=== PATIENT | male | born 1975 | race Caucasian/White ===

== ENCOUNTER → 2020-03-25 16:22 | Outpatient (REF) | payer OTHER, SELFPAY | LOC: ANHLAB 16:22 | PROVIDERS: PCP Family Medicine; Visit Provider Nurse Practitioner | DX: C44.41 Basal cell carcinoma of skin of scalp and neck (principal); C44.319 Basal cell carcinoma of skin of other parts of face | CPT/HCPCS: 88305 ==

== ENCOUNTER → 2020-05-19 06:58 | Outpatient (REF) | payer OTHER, SELFPAY | LOC: ANHLAB 06:58 | PROVIDERS: PCP Family Medicine; Visit Provider Nurse Practitioner | DX: C44.41 Basal cell carcinoma of skin of scalp and neck (principal); C44.319 Basal cell carcinoma of skin of other parts of face | CPT/HCPCS: 88305; 88331 ==

== ENCOUNTER → 2020-11-17 15:54 | Outpatient (REF) | payer OTHER, SELFPAY | LOC: ANHLAB 15:54 | PROVIDERS: PCP Family Medicine; Visit Provider Nurse Practitioner | DX: C44.41 Basal cell carcinoma of skin of scalp and neck (principal) | CPT/HCPCS: 88305 ==

== ENCOUNTER → 2021-01-26 09:39 | Outpatient (REF) | payer OTHER, SELFPAY | LOC: ANHLAB 09:39 | PROVIDERS: PCP Family Medicine; Visit Provider Nurse Practitioner | DX: C44.41 Basal cell carcinoma of skin of scalp and neck (principal) | CPT/HCPCS: 88305; 88331 ==

== ENCOUNTER 2021-07-17 13:19 | Emergency (ER) | payer OTHER, SELFPAY ==
[2021-07-17 13:26] VITALS: BP 140/95; PULSE 81; RESP 18; TEMP 37.2; O2SAT 99
--- NOTE | 2021-07-17 13:30 | ECG_ITS ---
Measurements Intervals [place] Rate: 76 P: 47 OR: 175 QRS: 38 QRSD: 93 T: 31 QT: 359 QTc: 404 Interpretive Statements SINUS RHYTHM MINIMAL Q WAVES- INFERIOR LEADS BORDERLINE ECG Electronically Signed On 07-17-2021 13:44:05 STOCK PITCHER by Romel Cueva D.O.
[2021-07-17 14:54] LABS: Basophils Absolute Auto 0.1 K/mm3 (0.0-0.1); Basophils Percent Auto 0.9 % (0.2-1.2); Eosinophils Absolute Auto 0.1 K/mm3 (0-0.3); Eosinophils Percent Auto 1.7 % (0-4.4); Hematocrit 45.1 % (42.0-52.0); Hemoglobin 14.9 g/dL (14.0-18.0); Immature Granulocyte Absolute 0.02 K/mm3 (0.00-0.031); Immature Granulocyte Percent A 0.3 % (0-0.5); Lymphocytes Absolute Auto 1.55 K/mm3 (0.9-3.2); Mean Corpuscular Hemoglobin 31.2 pg (26-34); Mean Corpuscular Volume 94.5 fl (80-100); Monocytes Absolute Auto 0.6 K/mm3 (0.1-0.6); Monocytes Percent Auto 8.8 % (2.6-8.5); Neutrophils Absolute Auto 4.2 K/mm3 (1.3-6.7); Neutrophils Percent Auto 64.3 % (45.5-73.1); Platelet Count Result 189 k/mm3 (150-375); Red Blood Count 4.77 M/mm3 (4.6-6.20); Red Cell Distribution Width 13.2 % (11.5-14.5); White Blood Count 6.5 K/mm3 (4.5-10.0)
[2021-07-17 15:05] LABS: Lactic Acid Reflex 1.1 mmol/L (0.7-2.1)
[2021-07-17 15:05] LABS: Add Urine Microscopic? NO; Appearance Urine Clear (Clear); Bilirubin Urine Negative (Negative); Blood Urine Negative (Negative); Color Urine Straw (Yellow); Glucose Urine UA Negative (Negative); Ketones Urine Negative (Negative); Leukocyte Esterase Ur Negative LEU/UL (Negative); Nitrate Urine Negative (Negative); Protein Urine Negative (Negative); Urobilinogen Urine Negative mg/dL (<2.0)
[2021-07-17 15:15] LABS: Specific Grav Ur 1.002 (1.001-1.035)
[2021-07-17 15:20] VITALS: BP 138/72; PULSE 76; RESP 18; O2SAT 99
[2021-07-17 15:21] LABS: Alanine Aminotransferase 42 U/L (4-50); Albumin Level 4.6 g/dL (3.5-5.1); Alkaline Phosphatase 38 U/L (38-126); Anion Gap 11 mmol/L (8-16); Aspartate Amino Transferase 50 U/L (17-59); Bilirubin,Total 1.3 mg/dL (0.2-1.3); Blood Urea Nitrogen 16 mg/dL (9-20); Calcium 9.3 mg/dL (8.4-10.2); Carbon Dioxide 24 mmol/L (22-30); Chloride 102 mmol/L (98-107); Estimated CRCL calculation 68 ml/min; Estimated Glomerular Filt Rate 59; Glucose 116 mg/dL (65-110); Magnesium 2.2 mg/dL (1.6-2.3); Potassium 3.9 mmol/L (3.4-5.0); Sodium 137 mmol/L (137-145)
[2021-07-17 15:24] LABS: Troponin I 0.019 ng/mL (0.000-0.034)
--- NOTE | 2021-07-17 16:32 | ED.GENADULT ---
HPI - General Adult General Chief complaint: Arrhythmia/Palpitations Stated complaint: palpitations Time Seen by Provider: 07/17/21 14:24 History of Present Illness HPI narrative: Patient 45-year-old gentleman who presents the emergency department with chief complaint of palpitations. The patient reports that the last 24 to 48 hours he has had episodes where he has felt as though his hearts been racing and has noticed that his heart is been skipping beats to. The patient reports that he has had issues before in the past where he had multiple PVCs and is actually had a bradycardic heart rate in the past patient states that has had no syncope triage denies chest pain reports that he saw his doctor via telehealth and they recommended that he come to the emergency department for evaluation Related Data Allergies Allergy/AdvReac Type Severity Reaction Status Date / Time No Known Allergies Allergy Verified 07/17/21 13:32 Review of Systems Review of Systems: A 10 system review of systems was completed on the patient and is negative except for what is stated in the HPI. Nursing and ancillary documentation was reviewed. [facility] Family History Family History Grandparent Family history of coronary artery disease Social History Social History Smoking status: Never smoker Alcohol intake: current Alcohol use details: 4-5 drinks a week Substance use: never Substance use type: does not use Exam Narrative: GENERAL: Well-appearing, well-nourished, and in no acute distress. HEAD: Normocephalic, atraumatic. EYES: PERRLA and EOMI. ENT: Nares clear, no rhinorrhea or epistaxis. Mucous membranes moist. NECK: Supple. CHEST: Clear to auscultation. No respiratory distress. HEART: Regular rate and rhythm. No murmur heard. Normal peripheral pulses. ABDOMEN: Soft, nontender, nondistended, normal active bowel sounds. EXTREMITIES: Normal range of motion. No edema. SKIN: Warm, dry, no rash. NEURO: No focal deficits. Alert and oriented x3. PSYCH: Normal mood and affect. Course Course Emergency Course: EKG is sinus rhythm rate of [address] elevation or ST depression The patient has been observed on the director family with a heart rate of 61 no significant dysrhythmias were noted Vital Signs Vital signs: Vital Signs Temperature 37.2 C 07/17/21 13:26 Pulse Rate 81 07/17/21 13:26 Respiratory Rate 18 07/17/21 13:26 Blood Pressure 140/95 H 07/17/21 13:26 Pulse Oximetry 99 07/17/21 13:26 Temperature 37.2 C 07/17/21 13:26 Pulse Rate 81 07/17/21 13:26 Respiratory Rate 18 07/17/21 13:26 Blood Pressure 140/95 H 07/17/21 13:26 Pulse Oximetry 99 07/17/21 13:26 Medical Decision Making Vital Signs Vital Signs: Vital Signs Temperature 37.2 C 07/17/21 13:26 Pulse Rate 81 07/17/21 13:26 Respiratory Rate 18 07/17/21 13:26 Blood Pressure 140/95 H 07/17/21 13:26 Pulse Oximetry 99 07/17/21 13:26 Temperature 37.2 C 07/17/21 13:26 Pulse Rate 81 07/17/21 13:26 Respiratory Rate 18 07/17/21 13:26 Blood Pressure 140/95 H 07/17/21 13:26 Pulse Oximetry 99 07/17/21 13:26 Lab Data Result diagrams: 07/17/21 14:45 07/17/21 14:45 Labs: Lab Results 07/17/21 07/17/21 07/17/21 Range/Units 14:45 14:45 14:45 WBC 6.5 (4.5-10.0) K/mm3 RBC 4.77 (4.6-6.20) M/mm3 Hgb 14.9 (14.0-18.0) g/dL Hct 45.1 (42.0-52.0) % MCV 94.5 (80-100) fl MCH 31.2 (26-34) pg MCHC 33.0 (32-36) g/dl RDW 13.2 (11.5-14.5) % Plt Count 189 (150-375) k/mm3 MPV 10.0 (7.4-10.4) fl Immature Gran % (Auto) 0.3 (0-0.5) % Neut % (Auto) 64.3 (45.5-73.1) % Lymph % (Auto) 24.0 (18.3-44.2) % [place] % (Auto) 8.8 H (2.6-8.5) % Eos % (Auto) 1.7 (0-4.4) % Baso % (Auto) 0.9 (0.2-1.2) % Lymph
[2021-07-17 17:35] VITALS: BP 136/72; PULSE 80; RESP 20; O2SAT 98
== END 2021-07-17 17:37 | disposition home or self-care (01) ==
LOC: ANHED 16:37
PROVIDERS: Emergency Provider Emergency Medicine
DX: R00.2 Palpitations (principal); R94.31 Abnormal electrocardiogram [ECG] [EKG]
CPT/HCPCS: 36415; 80053; 81003; 83605; 83735; 84484; 85025; 93005; 99284

== ENCOUNTER → 2021-09-04 10:37 | Outpatient (CLI) | payer OTHER, SELFPAY ==
--- NOTE | ~2021-09-04 | US_ITS ---
EXAMINATION: US abdomen complete EXAM DATE: 09/04/2021 10:56 INDICATION: R11.2 - Nausea with vomiting, unspecified . TECHNIQUE: Multiple grayscale and Doppler images of the complete abdomen were obtained (by a technolo gist who performed the scan) and subsequently reviewed. There is no prior study for comparison. FINDINGS: The abdominal aorta is normal in caliber. Visualized portion IVC is patent. The pancreatic head a nd body are normal in appearance. The pancreatic tail is not visualized. The liver has normal echogenicity and contour. There are no focal liver lesions identified. There is no evidence of intrahepatic biliary duct dilation. Portal venous flow was seen in the hepatopedal , normal direction and has normal Doppler waveform. Common bile duct measures 3 mm, which is normal. The gallbladder wall is normal in thickness, with ex pected amount of distention. No sonographic evidence of pericholecystic fluid. There is no cholelit hiases. Technologist performing exam reports patient did not demonstrate sonographic Granado's sign. Please note that this sign is less reliable in patients who have received pain medication. Right kidney: There is normal contour and echogenicity. It measures 10.6 x 4.1 x 5.9 centimeters. There are no focal renal lesions identified. There is no hydronephrosis. Left kidney: There is normal contour and echogenicity. It measures 10.5 x 6.0 x 5.2 centimeters. T here are no focal renal lesions identified. There is no hydronephrosis. The spleen measures 10 centimeters and is morphologically normal. IMPRESSION: Unremarkable complete abdominal ultrasound exam. Reviewed, dictated and finalized at location A. [employer] MACHINE OPERATOR HELPER
== END ==
PROVIDERS: PCP Family Medicine; Visit Provider Physician Assistant Medical
DX: R10.11 Right upper quadrant pain (principal); R11.2 Nausea with vomiting, unspecified
CPT/HCPCS: 76700

== ENCOUNTER 2021-10-23 00:56 | Day surgery (SDC) | payer OTHER, SELFPAY ==
[2021-10-20 15:06] VITALS: BMI 26.9
[2021-10-23 11:53] VITALS: BP 124/84; PULSE 85; RESP 16; TEMP 36.9; O2SAT 100
[2021-10-23] MEDS: LACTATED RINGERS 1,000 ML 150 ML IV CONT (12:07)
--- NOTE | 2021-10-23 12:24 | WPDANESEPPF ---
Anes - Initial Pre Proc Eval Procedure: Operation Date: 10/23/21 13:00 Proposed Procedures p Esophagogastroduodenoscopy & Screening Colonoscopy - Israel Herring MD Date/Time: 10/23/21 12:24 Surgeon: Israel Herring MD Pre Op Diagnosis: neoplasm screening, epigastric pain, nausea Patient Data Age: 45 Gender: M Height: 1.78 m Weight: 85 kg Last Vital Signs Temp 36.9 C 10/23/21 11:53 Pulse 85 10/23/21 11:53 Resp 16 10/23/21 11:53 BP 124/84 10/23/21 11:53 Pulse Ox 100 10/23/21 11:53 Allergies Allergy/AdvReac Type Severity Reaction Status Date / Time No Known Allergies Allergy Verified 10/23/21 11:52 Home Medications Medication Instructions Recorded Confirmed Type albuterol sulfate 90 mcg/actuation 2 puff INHALATION Q4H PRN #1 device 09/19/19 10/23/21 Rx aerosol inhaler beclomethasone dipropionate 80 2 inh INHALATION Q12H #10.6 gm 04/20/21 10/23/21 Rx mcg/actuation HFA breath activated aerosol omeprazole 40 mg capsule,delayed See Rx Instructions .ROUTE 09/02/21 10/23/21 Rx release .COMPLEX #90 cap Pepcid 20 mg PO DAILY 10/20/21 10/23/21 History Laboratory Tests 10/23/21 10/23/21 11:15 11:15 WBC 5.5 K/mm3 K/mm3 (4.5-10.0) RBC 4.86 M/mm3 M/mm3 (4.6-6.20) Hgb 15.0 g/dL g/dL (14.0-18.0) Hct 45.4 % % (42.0-52.0) MCV 93.4 fl fl (80-100) MCH 30.9 pg pg (26-34) MCHC 33.0 g/dl g/dl (32-36) RDW 13.3 % % (11.5-14.5) Plt Count 244 k/mm3 k/mm3 (150-375) MPV 9.7 fl fl (7.4-10.4) Sodium 139 mmol/L mmol/L (137-145) Potassium 4.2 mmol/L mmol/L (3.4-5.0) Chloride 103 mmol/L mmol/L (98-107) Carbon Dioxide 28 mmol/L mmol/L (22-30) Anion Gap 8 mmol/L mmol/L (8-16) BUN 11 mg/dL D mg/dL (9-20) Creatinine 1.10 mg/dL mg/dL (0.7-1.3) Estim Creat Clear Calc 77 ml/min ml/min Estimated GFR > 60 (59 - ) Glucose 109 mg/dL mg/dL (65-110) Calcium 9.5 mg/dL mg/dL (8.4-10.2) Total Bilirubin 1.1 mg/dL mg/dL (0.2-1.3) AST 41 U/L U/L (17-59) ALT 38 U/L U/L (4-50) Alkaline Phosphatase 56 U/L U/L (38-126) Total Protein 8.0 g/dL g/dL (6.3-8.2) Albumin 4.9 g/dL g/dL (3.5-5.1) Amylase 103 U/L U/L (30-110) Lipase 124 U/L U/L (23-300) Patient hx anesthesia problems: none Family hx anesthesia problems: none Results Review: All pre-operative results and documents have been reviewed as part of the pre-operative evaluation. [facility] Past Medical History Medical History BMI 30.0-30.9,adult Surgical History Surgical History (Updated 10/23/21 @ 12:29 by Greg Rainey MD) History of meatotomy of urethra Family History Family History Grandparent Family history of coronary artery disease Father Skin cancer Social History Social History Social History: drinks coffee daily Smoking status: Never smoker Alcohol intake: former Alcohol use details: hasnt been drinking because of stomach problems Substance use: never Substance use type: does not use Spiritual care concerns: No Anes - Eval Final PreProcedure Day of Procedure 10/23/21 12:24 Patient weight: overweight Heart: regular rate and rhythm Lungs: clear to auscultation Airway: Mallampati scale class II Neurological: alert and oriented Last oral intake: >/= 8 hours ASA classification: II Emergent: no Anesthetic plan: proceed Anesthesia type and monitoring: general GIVS and standard monitoring Results Review: All pre-operative results and documents have been reviewed as part of the pre-operative evaluation. Informed Consent: The patient's anesthetic plan and its attendant risks and benefits we
[2021-10-23] MEDS: SIMETHICONE ORAL SUSPENSION 20 MG/0.3 ML 30 ML BOTTLE 0.6 ML IRRIGATION (13:05)
[2021-10-23 13:11] VITALS: BP 109/66; PULSE 62; RESP 17; O2SAT 100
--- NOTE | 2021-10-23 13:20 | SUR.OPER ---
EGD START: 1249; END: 1252. COLONOSCOPY START: 1257; END: 1309.
[2021-10-23 13:21] VITALS: BP 97/56; PULSE 67; RESP 20; O2SAT 100
[2021-10-23 13:31] VITALS: BP 106/73; PULSE 62; RESP 17; O2SAT 100
== END 2021-10-23 13:54 | disposition home or self-care (01) ==
PROVIDERS: PCP Family Medicine; Referring Provider Nurse Practitioner Family; Visit Provider Internal Medicine Gastroenterology
PROC: 0DJ08ZZ Inspection of Upper Intestinal Tract, Via Natural or Artificial Opening Endoscopic (ICD-10-PCS; CPT 43235; principal; 2021-10-23 13:00)
DX: Z12.11 Encounter for screening for malignant neoplasm of colon (principal); K63.5 Polyp of colon; K64.8 Other hemorrhoids; K57.30 Diverticulosis of large intestine without perforation or abscess without bleeding; R10.13 Epigastric pain; R11.0 Nausea; Z79.51 Long term (current) use of inhaled steroids
CPT/HCPCS: 45385; 43239; 36415; 80053; 82150; 83690; 85027; 88305; J2001; J2704; J7120

== ENCOUNTER 2021-10-23 12:16 | Outpatient (CLI) | payer OTHER, SELFPAY ==
[2021-10-23 11:41] LABS: Hematocrit 45.4 % (42.0-52.0); Mean Corpuscular Hemoglobin 30.9 pg (26-34); Mean Corpuscular Volume 93.4 fl (80-100); Mean Platelet Volume 9.7 fl (7.4-10.4); Platelet Count Result 244 k/mm3 (150-375); Red Blood Count 4.86 M/mm3 (4.6-6.20); Red Cell Distribution Width 13.3 % (11.5-14.5); White Blood Count 5.5 K/mm3 (4.5-10.0)
[2021-10-23 11:54] LABS: Alanine Aminotransferase 38 U/L (4-50); Albumin Level 4.9 g/dL (3.5-5.1); Alkaline Phosphatase 56 U/L (38-126); Amylase 103 U/L (30-110); Anion Gap 8 mmol/L (8-16); Aspartate Amino Transferase 41 U/L (17-59); Bilirubin,Total 1.1 mg/dL (0.2-1.3); Blood Urea Nitrogen 11 mg/dL (9-20); Calcium 9.5 mg/dL (8.4-10.2); Carbon Dioxide 28 mmol/L (22-30); Chloride 103 mmol/L (98-107); Estimated CRCL calculation 77 ml/min; Estimated Glomerular Filt Rate > 60; Glucose 109 mg/dL (65-110); Lipase 124 U/L (23-300); Potassium 4.2 mmol/L (3.4-5.0); Sodium 139 mmol/L (137-145)
== END 2021-10-23 12:17 | disposition home or self-care (01) ==
PROVIDERS: PCP Family Medicine; Visit Provider Nurse Practitioner Family
DX: R11.2 Nausea with vomiting, unspecified (principal); R10.13 Epigastric pain
CPT/HCPCS: 36415; 80053; 82150; 83690; 85027

== ENCOUNTER 2021-11-18 07:34 | Outpatient (CLI) | payer OTHER, SELFPAY ==
--- NOTE | ~2021-11-18 | NM_ITS ---
EXAMINATION: NM hepatobiliary w pharm DATE: 11/18/2021 09:39 INDICATION: Epigastric abdominal pain. COMPARISON: Ultrasound 09/04/2021 TECHNIQUE: 5.1 mCi Tc-99m mebrofenin (Choletec) was administered intravenously. Scintigraphic images of the abdomen were obtained for one hour. Then, 1.68 mcg sincalide (Kinevac) IV was administered, a nd imaging was continued for 30 minutes. FINDINGS: There is normal clearance of radiotracer from the blood pool. There is homogeneous tracer u ptake by the liver. Activity progresses to the bowel and gallbladder. Gallbladder ejection fraction (GBEF) was 11%. Note that most patients with gallbladder dysfunction have GBEF < 35%, which overlaps with the broad normal range of 10-90%. IMPRESSION: 1. Gallbladder ejection fraction in the lower range of normal. Note that this value overlaps with th e range of values that may be seen with gallbladder dysfunction and/or chronic cholecystitis if there is appropriate clinical correlation. Reviewed, dictated and finalized at location A. IMPRESSION: 1. Gallbladder ejection fraction in the lower range of normal. Note that this value overlaps with the range of values that may be seen with gallbladder dysfu nction and/or chronic cholecystitis if there is appropriate clinical correlatio nLazarus
== END 2021-11-18 07:35 | disposition home or self-care (01) ==
LOC: ANHIMG 07:37
PROVIDERS: PCP Family Medicine; Visit Provider Surgery
DX: R10.13 Epigastric pain (principal)
CPT/HCPCS: 78227; A9537; J2805

== ENCOUNTER 2021-11-19 08:01 | Outpatient (CLI) | payer OTHER, SELFPAY ==
--- NOTE | ~2021-11-19 | CT_ITS ---
EXAMINATION: CT abdomen pelvis w con DATE: 11/19/2021 08:28 INDICATION: Epigastric abdominal pain. Nausea and vomiting. TECHNIQUE: Computed tomography (CT) of the abdomen and pelvis was performed with 100 mL Omnipaque 300 intravenous contrast. Automated exposure control and iterative reconstruction technique were employe d. The dose-length product was 568.52 mGy-cm. COMPARISON: Ultrasound 09/04/2021 FINDINGS: The visualized portions of the lung bases demonstrate mild atelectasis. A calcified left donta ng nodule is consistent with old granulomatous disease. No pleural effusion. The heart size is normal . No pericardial effusion. The liver, gallbladder, pancreas, adrenal glands, and kidneys are normal. Calcifications in the spleen are consistent with old granulomatous disease. The prostate is mildly en larged. There is diverticulosis of the colon without evidence of diverticulitis. The appendix is norm al. There is a moderate volume of stool in the colon. There is desiccated stool in the distal ileum s uggesting slow transit. There is a mildly dilated loop of small bowel proximal to this area suggestin g mechanical obstruction from the stool. There are no pathologically enlarged lymph nodes. There is n o free intraperitoneal fluid. There is mild lumbar spondylosis. There is a hemangioma in T11 vertebra l body. IMPRESSION: 1. Stool impaction. Reviewed, dictated and finalized at location A. IMPRESSION: 1. Stool impaction.
== END 2021-11-19 08:02 ==
LOC: MICIMG 08:01
PROVIDERS: PCP Family Medicine; Visit Provider Surgery
DX: R10.13 Epigastric pain (principal); R11.2 Nausea with vomiting, unspecified
CPT/HCPCS: 74177; Q9967

== ENCOUNTER 2021-12-07 10:23 | Outpatient (CLI) | payer OTHER, SELFPAY | END 2021-12-07 10:24 | disposition home or self-care (01) | LOC: ANHSURGERY 10:27 | PROVIDERS: PCP Family Medicine; Visit Provider Surgery | DX: K82.8 Other specified diseases of gallbladder (principal); Z01.818 Encounter for other preprocedural examination | CPT/HCPCS: 36415; 86850; 86900; 86901 ==

== ENCOUNTER 2021-12-11 04:44 | Day surgery (SDC) | payer OTHER, SELFPAY ==
--- NOTE | 2021-12-03 11:28 | PC.NURSE ---
Report to the Outpatient Waiting Room, entrance under the green pavilion located off [facility], at time 1300 on date _12/11/21 . OR Time: _1500 . - You and your visitor will be asked a series of questions to screen for COVID 19 for your protection. - Only one visitor is allowed at this time. - The patient visitor is requested to leave or wait in car when not with patient. - A mask is required within the hospital. Patients may have clear liquids (water, carbonated beverages, clear teas, apple juice) until 3 hours prior to surgery with a maximum of 20 ounces. - No food from midnight until time of surgery - Infants may have breast milk until 4 hours before surgery, infant formula 6 hours prior to surgery. - Children will be allowed to drink immediately following surgery. If applicable, please bring a bottle or sippy cup to assist with drinking. Juice, water, soda, and popsicles are readily available. For infants on formula, please bring formula the day of surgery. Pacifiers are allowed. Take the following medications with a SIP of water the morning of surgery: ___INHALER IF NEEDED Medications to discontinue per physician ___ALL VITAMINS AND SUPPLEMENTS 3 DAYS PRE OP Date to take last dose____12/07/21 Please no make-up, nail cambodian, hairspray, perfume, deodorant, or body powder the day of surgery. No jewelry (including any body piercings) or valuables the day of surgery, leave them at home. Please take a shower or bath the night before, or the morning of, surgery with an antibacterial soap. Wear comfortable, loose fitting clothing. Children are encouraged to wear pajamas. - Jewelry must be removed prior to entering the operating room. Rings and piercings that are not removed may be cut off. - The hospital will not accept responsibility for valuables. - Please leave all valuables, including medications, at home the day of surgery.HIBICLENS SHOWER MORNING OF SURGERY If you are going home after surgery, a licensed trolley coach driver must drive you home. - NO public transportation without another adult. - We recommend that an adult stay with you for 24 hours following discharge. - We also recommend that you do not drive, make important decision, drink alcoholic beverages, or take any drugs that were not prescribed by your health care provider for at least 24 hours after your discharge time. For Pediatric surgeries, we recommend two adults accompany the child home (only one inside the building at this time). Follow any additional instructions given to you from your surgeon. If you or anyone in your household have experienced Covid symptoms in the past week, please notify your surgeon or the nurse liaison at the phone number below for possible testing. Telephone instructions given to __PATIENT and asked if any additional questions and then verbalized understanding. Patient advised to call surgeon office or pre surgery nurse liaison [phone] if any additional questions.
[2021-12-03 11:39] VITALS: BMI 25.1
--- NOTE | 2021-12-10 14:57 | P.PNAN_ITS ---
Anes - Initial Pre Proc Eval Procedure: Operation Date: 12/11/21 15:00 Proposed Procedures p Laparoscopic Cholecystectomy, Possible Open - Ronak Dumont DO Date/Time: 12/10/21 14:57 Surgeon: Ronak Dumont DO Pre Op Diagnosis: biliary dyskinesia Patient Data Age: 46 Gender: M Height: 1.78 m Weight: 79.4 kg Allergies Allergy/AdvReac Type Severity Reaction Status Date / Time No Known Allergies Allergy Verified 12/11/21 13:13 Home Medications Medication Instructions Recorded Confirmed Type albuterol sulfate 90 mcg/actuation 2 puff inhalation Q4H PRN 09/19/19 12/11/21 Rx aerosol inhaler (ProAir HFA) shortness of breath or wheezing #1 device Pepcid 20 mg PO PRN PRN Heartburn 10/20/21 12/11/21 History omeprazole 40 mg capsule,delayed See Rx Instructions .Route 12/02/21 12/11/21 Rx release .COMPLEX #90 caps beclomethasone dipropionate 80 2 inh inhalation PRN PRN Shortness 12/03/21 12/11/21 History mcg/actuation HFA breath activated Of Breath aerosol (Qvar RediHaler) multivitamin 1 tablet PO DAILY 12/03/21 12/11/21 History polyethylene glycol 3350 17 gram 17 g PO DAILY 12/03/21 12/11/21 History oral powder packet (Miralax) vitamin B complex 1 cap PO DAILY 12/03/21 12/11/21 History Patient hx anesthesia problems: none Family hx anesthesia problems: none Results Review: All pre-operative results and documents have been reviewed as part of the pre- operative evaluation. [facility] Past Medical History Medical History Anxiety Asthma BMI 30.0-30.9,adult High cholesterol Surgical History Surgical History History of meatotomy of urethra Family History Family History Grandparent Family history of coronary artery disease Father Skin cancer Social History Social History Social History: drinks coffee daily Smoking status: Never smoker Alcohol intake: former Alcohol use details: hasnt been drinking because of stomach problems Substance use: never Substance use type: does not use Living arrangements: alone Spiritual care concerns: No Anes - Eval Final PreProcedure Day of Procedure 12/10/21 14:57 Patient weight: normal Heart: regular rate and rhythm Lungs: clear to auscultation Airway: Mallampati scale class II Neurological: alert and oriented Last oral intake: >/= 8 hours ASA classification: II Emergent: no Anesthetic plan: proceed Anesthesia type and monitoring: general ETT and standard monitoring Results Review: All pre-operative results and documents have been reviewed as part of the pre- operative evaluation. Informed Consent: The patient's anesthetic plan and its attendant risks and benefits were discussed with the patient/family/POA. Questions were solicited and answers provided to the satisfaction of the patient/family/POA.
[2021-12-11] VITALS (9 sets, daily range): BP systolic 102–146; BP diastolic 60–84; PULSE 42–64; RESP 12–20; TEMP 37.1–37.7; O2SAT 100; BMI 25.2
[2021-12-11] MEDS: LACTATED RINGERS 1,000 ML 30 ML IV CONT ×2 (13:44→15:59)
[2021-12-11] MEDS: KETOROLAC 15 MG/ML VIAL (*BKC) IV PUSH (13:45)
[2021-12-11] MEDS: ACETAMINOPHEN 500 MG TABLET 1000 MG PO (13:45)
--- NOTE | 2021-12-11 14:13 | PM.IMHP ---
H&P: HPI History of Present Illness Date/Time: 12/11/21 14:13 Chief Complaint: Biliary dyskinesia Narrative: This is a 46-year-old man who presents for laparoscopic cholecystectomy. He was having upper abdominal pain with nausea and vomiting. Workup initially was negative including gallbladder ultrasound and EGD. A HIDA scan was then performed and this showed a poor gallbladder ejection fraction. Discussions were made with the patient about treatment options and he now presents for laparoscopic cholecystectomy. He denies any changes since last seen in the office. Review of Systems Review of Systems: All systems reviewed & are unremarkable except as noted in HPI and below Constitutional: Constitutional: Denies chills, Denies fever(s), Denies headache(s) and Denies weight loss Eyes: Eyes: Denies change in vision ENT: Denies dizziness, Denies headache(s), Denies neck mass and Denies throat swelling Cardiovascular: Cardiovascular: Denies chest pain, Denies lightheadedness and Denies dyspnea Respiratory: Respiratory: Denies cough, Denies dyspnea and Denies wheezing Gastrointestinal: Gastrointestinal: Denies abdominal pain, Denies change in bowel habits, Denies nausea and Denies vomiting Genitourinary: Genitourinary: Denies hematuria and Denies dysuria Musculoskeletal: Musculoskeletal: Reports as per HPI Integumentary/Breasts: Skin/Breast: Reports as per HPI Neurologic: Denies dizziness and Denies headache(s) Allergic/Immunologic: Allergic/Immunologic: Denies throat swelling and Denies wheezing PMF Past Medical History Medical History Anxiety Asthma BMI 30.0-30.9,adult High cholesterol Surgical History Surgical History History of meatotomy of urethra Family History Family History Grandparent Family history of coronary artery disease Father Skin cancer Social History Social History Social History: drinks coffee daily Smoking status: Never smoker Alcohol intake: former Alcohol use details: hasnt been drinking because of stomach problems Substance use: never Substance use type: does not use Living arrangements: alone Spiritual care concerns: No Meds Home Medications and Allergies Home Medications Medication Instructions Recorded Confirmed Type albuterol sulfate 90 mcg/actuation 2 puff inhalation Q4H PRN 09/19/19 12/11/21 Rx aerosol inhaler (ProAir HFA) shortness of breath or wheezing #1 device Pepcid 20 mg PO PRN PRN Heartburn 10/20/21 12/11/21 History omeprazole 40 mg capsule,delayed See Rx Instructions .Route 12/02/21 12/11/21 Rx release .COMPLEX #90 caps beclomethasone dipropionate 80 2 inh inhalation PRN PRN Shortness 12/03/21 12/11/21 History mcg/actuation HFA breath activated Of Breath aerosol (Qvar RediHaler) multivitamin 1 tablet PO DAILY 12/03/21 12/11/21 History polyethylene glycol 3350 17 gram 17 g PO DAILY 12/03/21 12/11/21 History oral powder packet (Miralax) vitamin B complex 1 cap PO DAILY 12/03/21 12/11/21 History Allergies Allergy/AdvReac Type Severity Reaction Status Date / Time No Known Allergies Allergy Verified 12/11/21 13:13 Vital Signs Vital Signs - 24 hr 12/11/21 13:23 Temperature 37.1 C Pulse Rate 64 Respiratory Rate 16 Blood Pressure 122/74 Pulse Oximetry 100 Oxygen Delivery Room Air Exam Const: General: no acute distress and alert Orientation/consciousness: patient oriented x3 HENMT: Head: normocephalic and atraumatic Ears: hearing grossly normal bilaterally General nose exam: Normal nares present Mouth: Yes Normal oral and palatal mucosa present Eyes: Periorbital: periorbital findings normal Sclera: sclerae normal EOM: EOMs intact bilaterally Neck: Neck: normal visual insp
--- NOTE | 2021-12-11 14:18 | WPDHPUPDATE1 ---
History and Physical Update Update Date/Time: 12/11/21 14:18 History and Physical has been reviewed, including an updated exam of the patient. There are NO changes in the patient's condition. Risks, benefits, and alternatives have been discussed and questions answered. Patient agrees to proceed with procedure.
[2021-12-11] MEDS: ceFAZolin 2 GM/D5W 50 ML 2 GM/50 ML BAG IVPB (14:28)
[2021-12-11] MEDS: BUPIVACAINE HCL 0.5% PF 30 ML VIAL INFILTRATE (14:54)
--- NOTE | 2021-12-11 15:18 | W.PM.PROC2 ---
Procedure Note - Detailed Date of Procedure 12/11/21 Pre-op Diagnosis biliary dyskinesia Post-op Diagnosis Same Procedure Performed Laparoscopic cholecystectomy Surgeon Ronak Dumont, DO Anesthesia General and Local (0.5% bupivacaine) Indications This is a 46-year-old man who presented with upper abdominal pain with nausea for the past several months. He has tried altering his diet but continues to have frequent symptoms. Workup initially included an abdominal ultrasound and EGD which both were negative. He then had a CT and HIDA scan. HIDA scan showed decreased gallbladder function at 11%. Discussions were made with the patient about treatment options and decision was made to proceed with laparoscopic cholecystectomy, possible open. Findings Laparoscopic cholecystectomy was performed. Careful examination of the abdominal cavity was performed and no significant abnormalities were noted. The gallbladder grossly appeared normal in size and shape. The cystic duct was normal as well. There was a possible stone near the neck the gallbladder. The gallbladder was removed and sent to the lab for pathology. Description of Procedure Procedure as well as risks, benefits, and alternatives were discussed with patient. Written consent was obtained and placed in chart prior to procedure. The patient was brought back to surgical suite. Patient was placed in supine position on operating table. Time-out was done to confirm patient and procedure. Patient was then intubated by the anesthesia department. Abdomen was prepped and draped in sterile fashion using chlorhexidine prep. 0.5% bupivacaine with epinephrine was infiltrated at each site of incision. An 11 millimeter vertical incision was made at the inferior portion of the umbilicus using a 15 blade scalpel. Blunt dissection was carried down to the linea alba. The linea alba was then incised using a 15 blade scalpel. The peritoneum was then bluntly entered. An 11 millimeter trocar was inserted and carbon dioxide insufflation was used to create a pneumoperitoneum. The camera was inserted and the abdomen was inspected. The patient was placed in reverse Trendelenberg position and rotated slightly to the left. A 5 millimeter incision was made in the epigastric region, and a 5 millimeter trocar was inserted under direct visualization. Two 5 millimeter incisions were made in the right upper quadrant, and two 5 millimeter trocars were inserted under direct visualization. The gallbladder was identified and grasped at the fundus and retracted superiorly. It was then grasped at the infundibulum retracted laterally. Careful dissection around the neck of the gallbladder was performed using blunt dissection with a [place] grasper and hook electrocautery. The cystic duct was identified, and a window was created behind it. The cystic artery was also identified and a window was created behind it. The critical view of safety was identified, visualizing the cystic duct running directly into the neck of the gallbladder, and the cystic artery running directly into the wall of the gallbladder. A 5 millimeter clip professional athlete was then used to place 2 clips proximally and 1 clip distally on both the cystic duct and cystic artery. They were then both transected using endoscopic scissors. Once safely away from the edita hepatitis, the gallbladder was dissected free from the liver bed using hook electrocautery. Hemostasis was achieved along the way. The gallbladder was removed completely and then removed through the umbilical port. The liver bed was then inspected. Hemostasis appeared adequate, and our clips appeared secure. The area was gently irrigated with sterile saline. No other abnormalities were seen. The patient was flattened out in bed, and 1 final inspection was made around the abdominal cavity. The ports were then removed under direct visualization, the camera was removed, and the pneumoperitoneum was released. T
[2021-12-11] MEDS: ONDANSETRON INJ 4 MG/2 ML VIAL IV PUSH (15:55)
[2021-12-11] MEDS: oxyCODONE HCL (*CRX) 5 MG TAB IR PO (16:34)
== END 2021-12-11 17:44 | disposition home or self-care (01) ==
PROVIDERS: PCP Family Medicine; Visit Provider Surgery
PROC: 0FT44ZZ Resection of Gallbladder, Percutaneous Endoscopic Approach (ICD-10-PCS; CPT 47562; principal; 2021-12-11 15:00)
DX: K81.1 Chronic cholecystitis (principal); F41.9 Anxiety disorder, unspecified; J45.909 Unspecified asthma, uncomplicated; E78.00 Pure hypercholesterolemia, unspecified; Z79.51 Long term (current) use of inhaled steroids
CPT/HCPCS: 47562; 88304; A9270; J0690; J1100; J1170; J1885; J2250; J2370; J2405; J2704; J2710; J7120

== ENCOUNTER 2023-02-10 08:00 | Outpatient (NON) | payer OTHER, SELFPAY | END 2023-02-10 08:01 | disposition home or self-care (01) | PROVIDERS: PCP Family Medicine; Visit Provider Nurse Practitioner | DX: D48.5 Neoplasm of uncertain behavior of skin (principal) | CPT/HCPCS: 88305 ==